=== PATIENT | male | born 1960 | race Caucasian/White ===

== ENCOUNTER 2018-11-10 00:34 | Emergency (ER) | payer SELFPAY ==
[~2018-11-10] VITALS: Ht 147.3 cm; Wt 73.9 kg
--- NOTE | 2018-11-10 00:56 | NUR ---
pt bibra fr streets for etoh intoxication, depression. pt AOx3 w/ resp even & unlabored, admits to drinking alcohol all day today w/ thoughts of depression, does not elicit SI/HI, slurring his words, clothing dissheveled w/ strong etoh odor. pt placed on continuous pulse-ox w/ cardiac monitoring. bed low to ground, side rails up for safety. Dr. Conde at bedside for further eval.
--- NOTE | 2018-11-10 01:11 | NUR ---
electrical service technician at bedside for blood draw.
[2018-11-10 01:15] LABS: BASOPHILS # (AUTO) 0.1 /CMM (0.0-0.2); BASOPHILS % (AUTO) 1.1 % (0.0-2.0); EOSINOPHILS % (AUTO) 1.2 % (0.0-6.0); HEMATOCRIT 45 % (39-51); HEMOGLOBIN 14.7 g/dL (13.5-17.5); LYMPHOCYTES # (AUTO) 1.1 /CMM (0.8-4.8); LYMPHOCYTES % (AUTO) 19.7 % (20.0-44.0); MEAN CORPUSCULAR HGB CONC 33 g/dl (31.0-36.0); MEAN CORPUSCULAR VOLUME 91 fL (80-96); MONOCYTES # (AUTO) 0.4 /CMM (0.1-1.30); MONOCYTES % (AUTO) 7.1 % (2.0-12.0); NEUTROPHILS # (AUTO) 4.1 /CMM (1.8-8.9); NEUTROPHILS % (AUTO) 70.9 % (43.0-81.0); PLATELET COUNT (AUTO) 424 /CMM (150-450); RED BLOOD CELL COUNT(AUTO) 4.97 MIL/uL (4.5-6.0); WHITE BLOOD COUNT (AUTO) 5.8 K/uL (4.3-11.0)
[2018-11-10 01:26] LABS: CALCIUM, SERUM 8.7 mg/dL (8.5-10.1); CREATININE 0.7 mg/dL (0.6-1.3); POTASSIUM 3.2 mmol/L (3.5-5.1)
--- NOTE | 2018-11-10 01:32 | NUR ---
pt taken to CT via [facility].
[2018-11-10 01:33] LABS: ALBUMIN 3.2 g/dL (3.4-5.0); BILIRUBIN,DIRECT 0.1 mg/dL (0.0-0.2); BILIRUBIN,TOTAL 0.2 mg/dL (0.2-1.0); SALICYLATE 2.2 mg/dL (2.8-20.0); TOTAL PROTEIN, SERUM 7.6 g/dL (6.4-8.2)
--- NOTE | 2018-11-10 01:50 | NUR ---
pt back fr CT, sitting up in bed w/ resp even & unlabored, nad noted. On continuous monitoring.
--- NOTE | 2018-11-10 02:50 | NUR ---
pt asleep in bed w/ resp even & unlabored, on continuous monitoring w/ bed low to ground, siderails up for safety.
[2018-11-10] MEDS ORDERED: POTASSIUM CHLORIDE 20 MEQ TAB.PRT.SR PO ONE ×2 (03:00→03:15)
--- NOTE | 2018-11-10 03:56 | NUR ---
PT CONTINUES TO SLEEP IN BED W/ RESP EVEN & UNLABORED, NAD NOTED.
--- NOTE | 2018-11-10 05:10 | NUR ---
pt lying on rt side w/ HOB elevated, resp even & unlabored, bed low to ground w/ siderails up, on continuous monitoring.
--- NOTE | 2018-11-10 07:05 | NUR ---
Pt sleeping, HOB elevated w/ resp even & unlabored, easily arousable w/ nad noted. bed low to ground w/ siderails up, on continuous monitoring.
--- NOTE | 2018-11-10 07:15 | NUR ---
REPORT RECEIVED FROM STEFFEN ORDONEZ FOR [facility]. ASLEEP, EASILY AROUSABLE. VSS. NAD NOTED. ON MONITOR FOR CLOSE OBSERVATION.
--- NOTE | 2018-11-10 10:31 | NUR ---
RESTING QUIETLY, NAD NOTED. ALL NEEDS ATTENDED TO.
--- NOTE | 2018-11-10 11:25 | NUR ---
RESTING QUIETLY, ALERT, ORIENTED X4, APPEARS SOBER. DENIES SI OR HI. CALLED FOR LUNCH TRAY.
--- NOTE | 2018-11-10 11:40 | NUR ---
PT REQUESTING MOLECULAR BIOLOGY PROFESSOR TO HELP WITH PLACEMENT. CALLED AKIN PRESS CATCHER.
--- NOTE | 2018-11-10 11:53 | NUR ---
GIVEN LUNCH TRAY. AWAITING CALLBACK FROM AKIN
--- NOTE | 2018-11-10 12:10 | NUR ---
AKIN AT BEDSIDE
--- NOTE | 2018-11-10 13:24 | NUR ---
MAX met with pt. bedside to discuss discharge plan. Pt. is homeless. Pt. is alert and oriented x 4. Pt. was sitting on the bed and eating lunch. Pt. is cooperative with SW. Pt. appears disheveled. Pt. states he has been homeless for a year. Pt. receives approximately $950 in [employer] money per month. Pt. lost his ID and bank card. Pt. has a son who is 27 years old. Pt. is an alcoholic and drinks 4 40oz cans of beer per day. Pt.is originally from [place]. Pt. denies suicidal and homicidal ideations and visual/auditory hallucinations at this time. Pt. is willing to go to winter custodial at [facility]. MAX contacted [facility] but there was no answer, a recording came on stating the hours of operation 6PM-8AM. MAX was unable to leave a message because voicemail was full. MAX, then called [facility] Hotline and spoke to Fide to inquire if MAX can send pt. who is a double amputee and wheelchair bound. Fide informed MAX that it is okay to send pt. to [facility] pick -up location and per [place] [employer], if [facility] cannot accommodate the pt. they will be responsible to find appropriate custodial. MAX then, met with pt. and gave him [facility] Placement list [phone], [facility] Homeless Resource Directory and the following resources: [facility] Homeless [facility] [address] [place] [address] Homeless mentally ill people may be seen at [facility] on a walk-in basis. [facility] [address] [facility], [address]nd [place] [address] Main Number: [facility] ([facility]): Contact Tasneem Saenz [facility] [address] [place] [address] Clinic stated that walk-ins are welcomed, but they will be a long wait. No appointments. Services: mental health services, medications, community affairs director for resource linkage. [facility] [place] [address] Operation Hours: MON - FRI 8:00 a.m. - 5:00 p.m. Walk In Hours: MON - FRI 8:00 a.m. - 5:00 p.m. Services by Age: Adults and Older Adults Mental Health Services: [facility] Clinical Services (FCCS) Healthcare Clinics for Homeless patients [facility] [address] [facility], [address] [facility] [place] Hours: M, T, Th, F 8:30AM-4:30PM Walk-ins allowed Provide medical screening and pharmacy [facility] [address] [facility] [facility] [address] [place] [address] Hours M-F 8AM-3:30PM Walk-ins allowed Provide medical screening and pharmacy [facility] [address] [facility]. [place] [id number] Hours 8AM-4:30PM Walk-ins allowed Provide medical screening and pharmacy Alcohol and Drug Treatment Programs [facility] Substance Abuse Self-helpline ([facility]) Contact number . Call the hotline and the duck bill operator will screen and link individual to an appropriate program. Must have Medi-lorraine or be Med-lorraine eligible. [facility] [address] [facility]. [place] [id number] [facility] [address] [facility]. [place] [phone] [facility] Rehabilitation Program (Spiritism based) [address] [place] [address] (Six months program and need to work for 8 hrs per day while in treatment) [facility] [place] (No insurance required) [address] [place] [address] MAX encouraged pt. to attend an alcohol treatment program. Homeless pt. waiver form was signed by pt and placed in pt's chart. MAX updated CRCecilia Traore and MERY Treviño regarding pt's discharge plan.
--- NOTE | 2018-11-10 14:25 | NUR ---
PROVIDED WITH DRINKS PER REQUEST. AKIN SUPERVISOR COIN MACHINE PROVIDED RN WITH [facility] VOUCHER TO [facility] PICK-UP SPOT. ASKED MIRTA IN ADMITTING TO CALL TAXI AT 3PM, PER AKIN. UPDATED PT ON POC.
--- NOTE | 2018-11-10 14:48 | NUR ---
DISCHARGED PT TO LOBBY TO WAIT FOR TAXI. PT VERBALIZES UNDERSTANDING OF POC. ALL NEEDS ATTENDED TO. PT HAS HIS OWN WEATHER APPROPRIATE CLOTHING. Addendum: 11/10/18 at 1450 by HFOX DISCHARGE AFTER CARE PAPERWORK GIVEN TO PT, SIGNED, VERBALIZES UNDERSTANDING.
[2018-11-10 14:51] VITALS: BP 122/72
== END 2018-11-10 14:52 | disposition home or self-care (01) ==
LOC: ER 00:36
DX: R45.851 Suicidal ideations (principal); F10.129 Alcohol abuse with intoxication, unspecified; E87.6 Hypokalemia; F32.9 Major depressive disorder, single episode, unspecified; Z89.512 Acquired absence of left leg below knee; Z89.611 Acquired absence of right leg above knee; Z86.718 Personal history of other venous thrombosis and embolism; Z79.01 Long term (current) use of anticoagulants; Y90.8 Blood alcohol level of 240 mg/100 ml or more
CPT/HCPCS: 36415; 70450; 80048; 80076; 80307; 80329; 85025; 85730; 99284; A4606; G0480